=== PATIENT | male | born 1975 | race American Indian/Alaskan Native ===

== ENCOUNTER 2019-11-05 04:54 | Emergency (ER) | payer OTHER ==
[2019-11-05 05:04] VITALS: BP 177/113
[2019-11-05] MEDS ORDERED: IBUPROFEN 600 MG TAB PO ONE (07:33)
[2019-11-05] MEDS ORDERED: predniSONE 20 MG TAB PO ONE (09:26)
[2019-11-05] MEDS ORDERED: CYCLOBENZAPRINE 10 MG TAB PO ONE (09:26)
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
== END 2019-11-05 11:35 | disposition home or self-care (01) ==
LOC: ED 04:54
DX: M79.18 Myalgia, other site (principal); I10 Essential (primary) hypertension; Z79.899 Other long term (current) drug therapy; Z98.890 Other specified postprocedural states; Z88.8 Allergy status to other drugs, medicaments and biological substances; V49.09XA Driver injured in collision with other motor vehicles in nontraffic accident, initial encounter; Y93.89 Activity, other specified; Y92.411 Interstate highway as the place of occurrence of the external cause; Y99.8 Other external cause status
CPT/HCPCS: 71046; 72040; 73562; 99284; J7512